=== PATIENT | male | born 1995 | race Caucasian/White ===

== ENCOUNTER 2022-07-14 18:24 | Emergency (ER) | payer SELFPAY ==
[2022-07-14 18:37] VITALS: BP 130/90; PULSE 87; RESP 18; TEMP 36.7; O2SAT 99; BMI 27.1
--- NOTE | 2022-07-14 18:39 | DI.RAD.S_ITS ---
PROCEDURE: XR FOOT LT MIN 3V INDICATIONS: fall down 2 steps, pain top TECHNIQUE: 3 views of the foot were acquired. COMPARISON: None. FINDINGS: Bones: No fractures or dislocations. No suspicious bony lesions. Soft tissues: No tibiotalar joint effusion. Achilles tendon appears normal. IMPRESSION: No visualized acute fracture or dislocation. However, if clinical concern and/or pain persist, short interval imaging followup in 7-10 days is recommended, as occult injury cannot be definitively excluded. Dictated by: Lou Muñoz M.D. on 07/14/2022 at 19:26 Approved by: Lou Muñoz M.D. on 07/14/2022 at 19:26
[2022-07-14 18:46] VITALS: PULSE 78
[2022-07-14] MEDS: ACETAMINOPHEN 325 MG TABLET 975 MG PO (18:49)
[2022-07-14] MEDS: IBUPROFEN 400 MG TABLET 800 MG PO (18:50)
--- NOTE | 2022-07-14 19:26 | ED.LOWEXIN ---
HPI - Extremity Injury (Lower) General Chief Complaint: Extremity Injury, Lower Stated Complaint: fall possible broken foot Time Seen by Provider: 07/14/22 18:59 Source: patient and family Mode of arrival: Wheelchair History of Present Illness HPI Narrative: 26M smoker with no chronic medical history presents with the chief complaint of pain and swelling on his left foot after stepping awkwardly just prior to arrival. He was walking up 2 stairs when he inverted his left foot and now has pain swelling and bruising on the dorsum of his foot. He denies any numbness or tingling of his toes. He has no pain in the ankle, calf or knee. He denies any history of the same. His pain is worse when he ambulates and improves with rest. Related Data Home Medications Medication Instructions Recorded Confirmed omeprazole magnesium 20 mg 20 mg PO DAILY 09/26/18 09/26/18 capsule,delayed release (Acid Final Inspector And Tester (omeprazole)) Previous Rx's Medication Instructions Recorded hydrocodone 5 mg-acetaminophen 325 1 tab PO Q4-6H PRN pain #14 tabs 07/14/22 mg tablet Allergies Allergy/AdvReac Type Severity Reaction Status Date / Time No Known Drug Allergies Allergy Verified 07/14/22 18:39 Review of Systems Review of Systems Narrative: GENERAL: Denies chills, fatigue, malaise, fever, sweats. HEENT: Denies sinus pain, ear pain, sore throat, difficulty swallowing, dizziness. RESPIRATORY: Denies dyspnea, cough, wheezing, hemoptysis, sputum. CARDIOVASCULAR: Denies chest pain, palpitations, orthopnea, edema, GASTROINTESTINAL: Denies nausea, vomiting, abdominal pain, diarrhea, constipation, melena. : Denies dysuria, frequency, incontinence, hematuria, urinary retention. MUSCULOSKELETAL: See HPI SKIN: Denies rash, skin lesions, or other NEUROLOGIC: Denies weakness, headache, numbness, change in speech, confusion, seizures, incoordination. PSYCHIATRIC: No concerning psychosocial issues. 12 point review of systems is negative except for those stated above Patient History Social History Smoking Status: Current some day smoker Smoking Status: Current some day smoker alcohol intake frequency: holidays/special occasions only Substance Use Type: marijuana Exam Narrative Exam Narrative: GEN: AOx3 and in mild distress EYES: Pupils are equal, round, and reactive to light and accommodation. Extraoccular muscles are intact bilaterally. There is no subconjunctival hemorrhage or exudate. CHEST: Lungs are clear to auscultation bilaterally and free of wheezes, rales, or rhonchi. Heart rate is regular rhythm, there are no murmurs, clicks, rubs, or gallops. There is no chest wall tenderness. ABD: Abdomen is soft and nontender. There is no guarding or rebound. Bowel sounds are normal in all 4 quadrants. There is no mass or organomegaly. EXT: Dorsum of left basketballs and footballs reverser to palpation with ecchymosis. No gross deformity. Closed, isolated and N/V intact. No ligamentous instability, no pain medial or lateral malleoli, no pain or talus, no pain with squeeze test or at proximal fibula. No pain or swelling of knee SKIN: Warm, pink, and dry. No erythema or rash Initial Vital Signs Initial Vital Signs: Vital Signs Temperature 98.1 F 07/14/22 18:37 Pulse Rate 87 07/14/22 18:37 Respiratory Rate 18 07/14/22 18:37 Blood Pressure 130/90 07/14/22 18:37 Pulse Oximetry 99 07/14/22 18:37 Oxygen Delivery Method Room Air 07/14/22 18:37 Procedures Orthopedic Splinting/Casting Injury #1: Side: left Lower Extremity Injury Location: foot Lower Extremity Immobilizer: post-op shoe Other Orthopedic Equipment: crutches Post splinting neuro exam: intact Post splinting vascular exam: intact Placed by: Nursing Course Orders Ordered: Discontinued Medications Acetaminophen (Acetaminophen 325 Mg Tablet) 975 mg PO NOW ONE Stop: 07/14/22 18:47 Last Admin: 07/14/22 18:49 Dose: 975 mg Documented By: KEVIN Ibuprofen (Ibuprofen 400 Mg Tablet) 800 mg PO NOW ONE Stop: 07/14/22 18:47 Last Admin: 07/14/22 18:50 Dose: 800 mg Documented By: KEVIN Vital Signs Vital signs: Vital Signs - 8 hr 07/14/22 18:37 07/14/22 18:46 Temperature 98.1 F Pulse Rate 87 Pulse Rate [Left Dorsalis Pedis] 78 Respiratory Rate 18 Blood Pressure 130/90 Pulse Oximetry 99 Oxygen Delivery Method Room Air MDM - Extremity Injury (Lower) MDM Narrative Medical decision making narrative: [26] year old patient presents with left foot pain absent of pain in ankle or knee Multiple etiologies for patient's symptoms considered including, but not limited to: Sprain, fracture, dislocation versus other Prior Charts reviewed in our EMR Primary Historian: patient Imaging reviewed: No fracture or dislocation Patient's symptoms improved over duration of stay with above-stated therapies. Findings and discharge diagnosis discussed with patient/family followed by verbalization of understanding Return precautions discussed with patient/family whom verbalize understanding of diagnosis and plan Discharge Plan Departure Patient Disposition: Home Clinical Impression: Sprain of left foot Instructions: DI for Foot Sprain Activity Restrictions/Additional Instructions: *You have been diagnosed with [left foot sprain. As we discussed the you have pain and swelling your x-ray as interpreted by both myself and Radiology demonstrates no obvious fracture though on occasion a small fracture is very difficult to see on day 1 and may not show up until a week or so down the road. As the result, and as we discussed I will treat today as if there is a fracture with the boot and crutches] *What to do: *Please continue to take your regular medications as directed. [x ] New medication prescriptions sent to your pharmacy: [ [facility]] [ ] New medication written as a paper prescription [x] Tylenol and occasional Motrin for pain (Do not exceed 4000mg total of Tylenol or Acetaminophen daily, there is 325mg per hydrocodone pill) *Please follow up with [Ministerio ] of [facility] in 2-3 days, call for an appointment. Let them know you were seen in the Emergency Department and that we ask that you be seen in follow up. We will electronically transmit a record of today's note if your PCP is in our system *Weight bearing as tolerated *Return to Emergency Department if you should have any new, worsening or concerning symptoms, such as [worsening pain, significant swelling, cold extremities, numbness, tingling, weakness or other bothersome symptoms Splint Care: Keep splint clean and dry. Elevated affected body part to decrease swelling. OK to use ice pack on the affected body part. Use for 15-20 minutes each time, for 5-6x per day. If you develop worsening pain, numbness, tingling, discoloration of the affected body part, loosen the splint by loosening the RENETTA wrap, and either see your doctor for an urgent re-assessment, or return to the Emergency Department. Return to the Emergency Department for any new or worsening symptoms. You have been prescribed a short course of narcotic medications. These are potentially dangerous and addictive medications that should be used carefully. While on these medications you cannot drive or operate heavy machinery. Additionally, you cannot sign legal documents or perform any duties such as this. Many people get constipated on narcotic medications so it would be advisable to discuss stool softeners with the pharmacist when you orange picker your prescription. Please understand that we cannot provide further refills of narcotics or controlled substances through the ED and your pain management will need to be through your Primary Care Provider Prescriptions: New hydrocodone-acetaminophen 5-325 mg tablet 1 tab PO Q4-6H PRN (Reason: pain) Qty: 14 0RF No Action omeprazole magnesium [Acid Final Inspector And Tester (omeprazole)] 20 mg capsule,delayed release(DR/EC) 20 mg PO DAILY Referrals: Ba Mandel MD [Physician] - Ana Berrios ARNP [Primary Care Provider] - Stand Alone Forms: Patient Portal/API
--- NOTE | 2022-07-14 20:11 | PC.NURSE ---
pt declined crutches, states he has a couple pairs at home and is well versed in using them.
== END 2022-07-14 20:13 | disposition home or self-care (01) ==
PROVIDERS: Emergency Provider Emergency Medicine; Family Provider Internal Medicine; PCP Internal Medicine
DX: S93.602A Unspecified sprain of left foot, initial encounter (principal); X50.1XXA Overexertion from prolonged static or awkward postures, initial encounter
CPT/HCPCS: 73630; 99283; 99284

== ENCOUNTER 2022-11-02 10:29 | Emergency (ER) | payer OTHER, SELFPAY ==
[2022-11-02 10:39] VITALS: BP 134/79; PULSE 98; RESP 18; TEMP 37.2; O2SAT 95; BMI 32.5
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
[2022-11-02 10:50] VITALS: PULSE 102; O2SAT 97
[2022-11-02 10:52] VITALS: BP 118/68; PULSE 95; O2SAT 95
[2022-11-02 11:00] VITALS: BP 115/67; PULSE 92; O2SAT 96
--- NOTE | 2022-11-02 11:20 | PC.NURSE ---
Received safe handoff report from ANDRÉS Moore. Pt resting, awaiting x-ray. Denies new symptoms or any needs at this time.
[2022-11-02 11:30] VITALS: BP 121/75; PULSE 92; O2SAT 95
--- NOTE | 2022-11-02 11:45 | PC.NURSE ---
Pt transported to x-ray by wheelchair, where he refused exam. industrial maintenance technician returned pt to room. Pt states he does not have insurance and does not want to incur the expense. Pt informed of hospital financial assistance and provided with paperwork. Pt partially completed form and then stated he wanted to leave. Pt advised he would be leaving AMA and encouraged to stay to receive care. Pt declined to stay and signed AMA paperwork. Pt A&Ox4 and ambulatory on departure.
== END 2022-11-02 11:52 | disposition left against medical advice (07) ==
PROVIDERS: Emergency Provider Emergency Medicine; Family Provider Internal Medicine; PCP Internal Medicine
CPT/HCPCS: 99281

== ENCOUNTER 2022-11-03 14:02 | Emergency (ER) | payer SELFPAY ==
[2022-11-03 14:04] VITALS: BP 127/73; PULSE 99; RESP 20; TEMP 36.7; O2SAT 96; BMI 32.5
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
--- NOTE | 2022-11-03 14:11 | DI.RAD.S_ITS ---
PROCEDURE: XR LUMBAR SPINE 2-3V INDICATIONS: back pain, numbness in toes TECHNIQUE: 3 views of the lumbar spine were acquired. COMPARISON: None. FINDINGS: Bones: 5 [id number] vertebrae are present. There is normal bony alignment. Moderate disc and foraminal narrowing is present at L5-S1. No vertebral body compression fractures. No suspicious bony lesions. Soft tissues: Overlying bowel gas pattern is normal. No suspicious soft tissue calcifications. IMPRESSION: Moderate disc and foraminal narrowing at L5-S1. Dictated by: Lou Muñoz M.D. on 11/03/2022 at 15:00 Approved by: Lou Muñoz M.D. on 11/03/2022 at 15:00
--- NOTE | 2022-11-03 14:11 | DI.RAD.S_ITS ---
PROCEDURE: XR RIBS LT MIN 3V W CXR1V INDICATIONS: left side rib pain TECHNIQUE: 3 views of the left ribs were acquired, along with a single view chest. COMPARISON: None. FINDINGS: Surgical changes and devices: None. Bones and chest wall: No fractures or dislocations. No suspicious bony lesions. Overlying soft tissues appear unremarkable. Lungs and pleura: No pleural effusions or pneumothorax. Lungs appear clear. Mediastinum: Mediastinal contours appear normal. Heart size is normal. IMPRESSION: No visualized acute fracture or dislocation. However, if clinical concern and/or pain persist, short interval imaging followup in 7-10 days is recommended, as occult injury cannot be definitively excluded. Dictated by: Lou Muñoz M.D. on 11/03/2022 at 14:59 Approved by: Lou Muñoz M.D. on 11/03/2022 at 15:00
[2022-11-03 14:12] VITALS: O2SAT 94
[2022-11-03 14:13] VITALS: BP 140/94; PULSE 94; O2SAT 98
[2022-11-03 14:26] LABS: Hematocrit 31.3 % (41-53); Hemoglobin 10.8 g/dL (13.5-17.5); Mean Corpuscular HGB Conc 34.4 % (30-36); Mean Corpuscular Hemoglobin 32.7 PG (26-34); Mean Corpuscular Volume 94.9 fL (80-100); Platelet Count 241 X10^3/uL (150-400); Red Cell Distribution Width 19.9 % (11.6-14.8); White Blood Cell Count 9.3 X10^3/uL (4.5-11.0)
[2022-11-03 14:30] VITALS: BP 123/70; PULSE 93; RESP 26; O2SAT 98
[2022-11-03 14:37] LABS: PTT Partial Thromboplastin Tim 26 SECONDS (26-36)
[2022-11-03 14:39] LABS: Add Manual Diff / Slide Review YES
[2022-11-03 14:40] LABS: Alanine Aminotransferase 28 IU/L (<50); Alkaline Phosphatase 100 U/L (38-126); Aspartate Aminotransferase 24 IU/L (17-59); BUN Creatinine Ratio 23.2 (6-22); Bilirubin Total 0.7 mg/dL (0.2-1.3); Blood Urea Nitrogen 19 mg/dL (9-20); Calcium 8.7 mg/dL (8.4-10.2); Carbon Dioxide 30 mmol/L (22-32); Chloride 103 mmol/L (98-107); Creatine Kinase 56 U/L (55-170); Estimated Glomerular Filt Rate > 60 mL/min (>60); Glucose 113 mg/dL (70-100); HEMOLYSIS < 15 (0-50); Lipase 68 U/L (23-300); Sodium 141 mmol/L (137-145)
[2022-11-03 14:45] LABS: Neutrophils Absolute Manual 5487 /uL (3000-5900); Total Cells Counted 100
[2022-11-03 14:47] LABS: Anisocytosis 1+
[2022-11-03 14:50] LABS: Troponin I < 0.012 ng/mL (0.01-0.034)
[2022-11-03 15:00] VITALS: PULSE 92; RESP 23; O2SAT 96
[2022-11-03 15:30] VITALS: PULSE 92; RESP 30; O2SAT 97
== END 2022-11-03 15:58 | disposition home or self-care (01) ==
PROVIDERS: Emergency Provider Emergency Medicine; Family Provider Internal Medicine; PCP Internal Medicine
DX: R20.2 Paresthesia of skin (principal); R07.9 Chest pain, unspecified
CPT/HCPCS: 36415; 71101; 72100; 80053; 82550; 83690; 83735; 84484; 85007; 85025; 85610; 85730; 99284

== ENCOUNTER 2023-05-22 02:27 | Emergency (ER) | payer SELFPAY ==
[2023-05-22] VITALS (10 sets, daily range): BP systolic 129–143; BP diastolic 70–73; PULSE 95–103; RESP 16–20; TEMP 36.3–36.9; O2SAT 89–98; BMI 29.8
--- NOTE | 2023-05-22 02:43 | DI.RAD.S_ITS ---
PROCEDURE: XR CHEST 2V INDICATIONS: hypoxemia TECHNIQUE: 2 views of the chest were acquired. COMPARISON: None. FINDINGS: Surgical changes and devices: None. Lungs and pleura: Lungs appear clear. No pleural effusions or pneumothorax. Mediastinum: Mediastinal contours are normal. Heart size is normal. Bones and chest wall: No suspicious bony abnormalities. Soft tissues appear unremarkable. IMPRESSION: No acute cardiopulmonary abnormality. This report is concordant with the overnight preliminary interpretation. Dictated by: Alphonso Ruiz M.D. on 05/22/2023 at 7:44 Approved by: Alphonso Ruiz M.D. on 05/22/2023 at 7:45
--- NOTE | 2023-05-22 02:44 | PC.NURSE ---
resp even and unlabored pt has mild end expiratory wheeze in the left upper lobe, and diminished sounds in the bases
[2023-05-22 03:35] LABS: Hematocrit 35.1 % (41-53); Hemoglobin 11.9 g/dL (13.5-17.5); Mean Corpuscular Volume 94.1 fL (80-100); Platelet Count 275 X10^3/uL (150-400); Red Blood Cell Count 3.73 X10^6/uL (4.5-5.9); Red Cell Distribution Width 18.9 % (11.6-14.8); White Blood Cell Count 10.6 X10^3/uL (4.5-11.0)
--- NOTE | 2023-05-22 03:39 | ED_ITS ---
HPI - SOB/Dyspnea <Sukhi Gooden MD - Last Filed: 06/04/23 04:54> General Chief Complaint: Shortness of Breath/Dyspnea Stated Complaint: Shortness of Breath Time Seen by Provider: 05/22/23 02:42 Source: patient Mode of arrival: EMS History of Present Illness HPI Narrative: This is a 27-year-old male who arrives by ambulance. History is provided by EMS, the patient, and girlfriend who accompanies him in the emergency department. Reportedly he has had a cough for several days. Prior to this he was using inhaled nitrous oxide (whip it) although he reports he has not done this in about 5 days. He has had a cough has not had fevers. No nausea vomiting no chest pain. He says it tonight he was in bed and fell out of bed possibly in a panic state. He says he felt short of breath immediately after that. This was not accompanied by chest pain. EMS found him with an oxygen saturation in the upper 80s and reported that he was a bit wheezy although his girlfriend had given him nebulized albuterol. Patient himself says he has no history of lung disease, he vapes and smokes marijuana does not use alcohol. He says he does not have a primary care provider and has a history of abusing nitrous as above. Related Data Home Medications Medication Instructions Recorded Confirmed omeprazole magnesium 20 mg 20 mg PO DAILY 09/26/18 09/26/18 capsule,delayed release (Acid Web Consultant (omeprazole)) Previous Rx's Medication Instructions Recorded hydrocodone 5 mg-acetaminophen 325 1 tab PO Q4-6H PRN pain #14 tabs 07/14/22 mg tablet gabapentin 300 mg capsule 300 mg PO BEDTIME #14 caps 11/03/22 methylprednisolone 4 mg tablets in See Rx Instructions PO .COMPLEX 11/03/22 a dose pack (Medrol (Sahil)) #21 ea Allergies Allergy/AdvReac Type Severity Reaction Status Date / Time No Known Drug Allergies Allergy Verified 11/02/22 10:38 Patient History <Sukhi Gooden MD - Last Filed: 06/04/23 04:54> Social History Smoking Status: Current some day smoker Smoking Status: Current some day smoker alcohol intake frequency: holidays/special occasions only Substance Use Type: marijuana Exam <Sukhi Gooden MD - Last Filed: 06/04/23 04:54> Initial Vital Signs Initial Vital Signs: Vital Signs Temperature 97.3 F L 05/22/23 02:32 Pulse Rate 97 H 05/22/23 02:32 Respiratory Rate 20 05/22/23 02:32 Blood Pressure 129/73 05/22/23 02:32 Pulse Oximetry 89 L 05/22/23 02:32 Oxygen Delivery Method Room Air 05/22/23 02:32 Noted to be 89% on room air. Const General: No acute distress HENMT Head: normocephalic and atraumatic Mouth: moist mucous membranes and No muffled voice Neck Neck: supple and No JVD Resp Effort & Inspection: normal respiratory effort and able to speak in complete sentences Auscultation: no wheezes and other (Mildly coarse breath sounds. No rales.) Cardio Rate: regular rate Rhythm: regular rhythm Heart Sounds: S1 normal, S2 normal and no murmurs GI Palpation: soft and No tender Auscultation: normal bowel sounds Skin General: no rashes or lesions noted, dry skin and warm Neuro General: patient alert, patient awake and patient oriented x3 Speech: speech normal Motor: muscle tone normal throughout Extrem Other: No palpable cords, does have bilateral calf tenderness <Laisha Patterson DO - Last Filed: 05/22/23 11:09> Initial Vital Signs Initial Vital Signs: Vital Signs Temperature 97.3 F L 05/22/23 02:32 Pulse Rate 97 H 05/22/23 02:32 Respiratory Rate 20 05/22/23 02:32 Blood Pressure 129/73 05/22/23 02:32 Pulse Oximetry 89 L 05/22/23 02:32 Oxygen Delivery Method Room Air 05/22/23 02:32 Course <Sukhi Gooden MD - Last Filed: 06/04/23 04:54> Orders Ordered: Discontinued Medications Sodium Chloride (Normal Saline 0.9%) 1,000 mls @ 1,000 mls/hr IV BOLUS ONE Stop: 05/22/23 05:18 Last Infusion: 05/22/23 05:24 Dose: Infused Documented By: Admin: 05/22/23 04:24 Dose: 1,000 mls/hr Documented By: MAIDA Vital Signs Vital signs: Vital Signs - 8 hr 05/22/23 03:30 05/22/23 04:00 05/22/23 04:30 Temperature Pulse Rate 102 H 103 H 99 H Respiratory Rate Blood Pressure Pulse Oximetry 94 94 95 Oxygen Delivery Method Nasal Cannula Nasal Cannula Nasal Cannula Oxygen Flow Rate 4 4 4 05/22/23 05:00 05/22/23 05:30 05/22/23 07:22 Temperature Pulse Rate 98 H 98 H Respiratory Rate 16 Blood Pressure 143/70 H Pulse Oximetry 94 97 Oxygen Delivery Method Nasal Cannula Oxygen Flow Rate 4 05/22/23 07:22 05/22/23 07:30 05/22/23 08:52 Temperature 98.5 F Pulse Rate 98 H 96 H 100 H Respiratory Rate 20 Blood Pressure 132/73 Pulse Oximetry 98 96 95 Oxygen Delivery Method Room Air Room Air Oxygen Flow Rate <Laisha Patterson DO - Last Filed: 05/22/23 11:09> Orders Ordered: Discontinued Medications Sodium Chloride (Normal Saline 0.9%) 1,000 mls @ 1,000 mls/hr IV BOLUS ONE Stop: 05/22/23 05:18 Last Infusion: 05/22/23 05:24 Dose: Infused Documented By: Admin: 05/22/23 04:24 Dose: 1,000 mls/hr Documented By: MAIDA Vital Signs Vital signs: Vital Signs - 8 hr 05/22/23 03:30 05/22/23 04:00 05/22/23 04:30 Temperature Pulse Rate 102 H 103 H 99 H Respiratory Rate Blood Pressure Pulse Oximetry 94 94 95 Oxygen Delivery Method Nasal Cannula Nasal Cannula Nasal Cannula Oxygen Flow Rate 4 4 4 05/22/23 05:00 05/22/23 05:30 05/22/23 07:22 Temperature Pulse Rate 98 H 98 H Respiratory Rate 16 Blood Pressure 143/70 H Pulse Oximetry 94 97 Oxygen Delivery Method Nasal Cannula Oxygen Flow Rate 4 05/22/23 07:22 05/22/23 07:30 05/22/23 08:52 Temperature 98.5 F Pulse Rate 98 H 96 H 100 H Respiratory Rate 20 Blood Pressure 132/73 Pulse Oximetry 98 96 95 Oxygen Delivery Method Room Air Room Air Oxygen Flow Rate MDM - SOB/Dyspnea <Sukhi Gooden MD - Last Filed: 06/04/23 04:54> Lab Data Lab results narrative: CBC with diff is unremarkable except for mild anemia, CMP has mild elevations in AST and ALT probably not clinically significant, troponin is normal D-dimer is elevated 05/22/23 03:15 05/22/23 03:15 Labs: Lab Results 05/22/23 05/22/23 05/22/23 Range/Units 02:43 03:15 03:20 WBC 10.6 (4.5-11.0) X10^3/uL RBC 3.73 L (4.5-5.9) X10^6/uL Hgb 11.9 L (13.5-17.5) g/dL Hct 35.1 L (41-53) % MCV 94.1 (80-100) fL MCH 32.0 (26-34) PG MCHC 34.0 (30-36) % RDW 18.9 H (11.6-14.8) % Plt Count 275 (150-400) X10^3/uL Neut % (Auto) Not Reportable Lymph % (Auto) Not Reportable [place] % (Auto) Not Reportable Eos % (Auto) Not Reportable Baso % (Auto) Not Reportable Lymph # (Auto) Not Reportable [place] # (Auto) Not Reportable Baso # (Auto) Not Reportable Total Counted 100 Seg Neutrophils % 54.0 (38-70) % Band Neutrophils % 4.0 (3-7) % Lymphocytes % (Manual) 28.0 (25-45) % Atypical Lymphs % 1.0 H ( - 0) % Monocytes % (Manual) 6.0 (2-11) % Eosinophils % (Manual) 3.0 (2-4) % Metamyelocytes % 2.0 H (-0) % Myelocytes % 2.0 H (-0) % Neutrophils # (Manual) 6148 H (8832-5018) /uL RBC Morphology See below Anisocytosis 1+ H D-Dimer 836 H (<500) ng/ml VBG pH 7.39 (7.33-7.43) VBG pCO2 45.4 (45-50) mmHg VBG pO2 55 H (35-45) mmHg VBG HCO3 27 (24-28) mmol/L VBG Total CO2 29 (24-29) mmol/L VBG O2 Saturation 88 H (70-75) % VBG Base Excess 2.0 (0-4) mmol/L FiO2 32 Sodium 140 (137-145) mmol/L Potassium 4.2 (3.4-5.1) mmol/L Chloride 105 (98-107) mmol/L Carbon Dioxide 26 (22-32) mmol/L BUN 23 H (9-20) mg/dL Creatinine 0.70 (0.66-1.25) mg/dL Estimated GFR > 60 (>60) mL/min BUN/Creatinine Ratio 32.9 H (6-22) Glucose 132 H (70-100) mg/dL Calcium 8.9 (8.4-10.2) mg/dL Total Bilirubin 0.6 (0.2-1.3) mg/dL AST 41 (17-59) IU/L ALT 34 (<50) IU/L Alkaline Phosphatase 93 (38-126) U/L Troponin I < 0.012 (0.01-0.034) ng/mL NT-Pro-B Natriuret Pep 47 (<125) pg/mL Total Protein 7.6 (6.3-8.2) g/dL Albumin 3.8 (3.5-5.0) g/dL Globulin 3.8 (1.7-4.1) g/dL Albumin/Globulin Ratio 1.0 (1.0-2.8) SARS-CoV-2 (PCR) Negative (Negative) Influenza A (RT-PCR) Flu a negative (NEGATIVE) Influenza B (RT-PCR) Flu b negative (NEGATIVE) RSV (PCR) Negative (Negative) ABG Data ABG results: Fetus blood gas shows pH 7.386 pCO2 45 PO2 of 55 with a bicarbonate of 27.2. This is obtained on 32% FiO2 consistent with a further hypoxia on room air Imaging Data Chest x-ray: My Impression: Independent review of chest x-ray, questionable right lower lobe infiltrate Radiologist's Impression: Night coverage radiology report two-view chest x-ray no acute cardiopulmonary disease ECG Data Interpretation: EKG shows normal sinus rhythm at 96 RI interval 152 QRS duration is 90 milliseconds incomplete right bundle-branch block no acute ST segment changes no previous infarction <Laisha Patterson, - Last Filed: 05/22/23 11:09> Lab Data Labs: Lab Results 05/22/23 05/22/23 05/22/23 Range/Units 02:43 03:15 03:20 WBC 10.6 (4.5-11.0) X10^3/uL RBC 3.73 L (4.5-5.9) X10^6/uL Hgb 11.9 L (13.5-17.5) g/dL Hct 35.1 L (41-53) % MCV 94.1 (80-100) fL MCH 32.0 (26-34) PG MCHC 34.0 (30-36) % RDW 18.9 H (11.6-14.8) % Plt Count 275 (150-400) X10^3/uL Neut % (Auto) Not Reportable Lymph % (Auto) Not Reportable [place] % (Auto) Not Reportable Eos % (Auto) Not Reportable Baso % (Auto) Not Reportable Lymph # (Auto) Not Reportable [place] # (Auto) Not Reportable Baso # (Auto) Not Reportable Total Counted 100 Seg Neutrophils % 54.0 (38-70) % Band Neutrophils % 4.0 (3-7) % Lymphocytes % (Manual) 28.0 (25-45) % Atypical Lymphs % 1.0 H ( - 0) % Monocytes % (Manual) 6.0 (2-11) % Eosinophils % (Manual) 3.0 (2-4) % Metamyelocytes % 2.0 H (-0) % Myelocytes % 2.0 H (-0) % Neutrophils # (Manual) 6148 H (3447-2772) /uL RBC Morphology See below Anisocytosis 1+ H D-Dimer 836 H (<500) ng/ml VBG pH 7.39 (7.33-7.43) VBG pCO2 45.4 (45-50) mmHg VBG pO2 55 H (35-45) mmHg VBG HCO3 27 (24-28) mmol/L VBG Total CO2 29 (24-29) mmol/L VBG O2 Saturation 88 H (70-75) % VBG Base Excess 2.0 (0-4) mmol/L FiO2 32 Sodium 140 (137-145) mmol/L Potassium 4.2 (3.4-5.1) mmol/L Chloride 105 (98-107) mmol/L Carbon Dioxide 26 (22-32) mmol/L BUN 23 H (9-20) mg/dL Creatinine 0.70 (0.66-1.25) mg/dL Estimated GFR > 60 (>60) mL/min BUN/Creatinine Ratio 32.9 H (6-22) Glucose 132 H (70-100) mg/dL Calcium 8.9 (8.4-10.2) mg/dL Total Bilirubin 0.6 (0.2-1.3) mg/dL AST 41 (17-59) IU/L ALT 34 (<50) IU/L Alkaline Phosphatase 93 (38-126) U/L Troponin I < 0.012 (0.01-0.034) ng/mL NT-Pro-B Natriuret Pep 47 (<125) pg/mL Total Protein 7.6 (6.3-8.2) g/dL Albumin 3.8 (3.5-5.0) g/dL Globulin 3.8 (1.7-4.1) g/dL Albumin/Globulin Ratio 1.0 (1.0-2.8) SARS-CoV-2 (PCR) Negative (Negative) Influenza A (RT-PCR) Flu a negative (NEGATIVE) Influenza B (RT-PCR) Flu b negative (NEGATIVE) RSV (PCR) Negative (Negative) Imaging Data CT scan - chest: Radiologist's Impression: Preliminary report: Suboptimal timing of the contrast bolus to evaluate for pulmonary embolus. No central pulmonary embolism aortic dissection or aneurysm. Multifocal bilateral pulmonary infiltrates. Recommend short-term follow-up CT in 3 months after appropriate treatment and ensure complete resolution. MDM Narrative Medical decision making narrative: DR. Patterson: Patient signed out to me by Dr. Gooden I have seen evaluated patient myself. He reports that he was in [place] for the last 3 days he has been walking around last night he woke up suddenly extremely short of breath and fell out of bed. He was noted to be hypoxic on room air 89%. He required 4 L of oxygen. He admits that he was doing lipids inhaling some sort of nitric oxide he was doing it so frequently his B12 level decreased. He reports that was 6 months ago. He denies any fever chills or cough. He has not having anymore chest pain. He had an albuterol treatment at home by his girlfriend. He is overall feeling much better no longer hypoxic Blood work has been reviewed: No leukocytosis or anemia, no electrolyte abnormalities or GM troponin is negative D-dimer 836 BNP Imaging reviewed: Chest x-ray no acute cardiopulmonary process, CT did not show any PE but does show some bilateral pulmonary infiltrates Patient not having any symptoms of pneumonia. Overall feeling better. He ambulated without any difficulty. Discharge Plan Departure Patient Disposition: Home Clinical Impression: Atypical chest pain Instructions: DI for Atypical Chest Pain Activity Restrictions/Additional Instructions: *You have been diagnosed with atypical chest pain *What to do: At this time your blood work and CT scans are overall reassuring. Unclear what caused your shortness of breath. However you do not have infection fluid or blood clot *Continue to take medications as directed *Follow up with your primary care provider in 2-3 days or call [phone] *Return to ER if you should have increasing chest pain shortness of breath or any new, worsening or concerning symptoms Prescriptions: No Action omeprazole magnesium [Acid Web Consultant (omeprazole)] 20 mg capsule,delayed release(DR/EC) 20 mg PO DAILY hydrocodone-acetaminophen 5-325 mg tablet 1 tab PO Q4-6H PRN (Reason: pain) Qty: 14 0RF gabapentin 300 mg capsule 300 mg PO BEDTIME Qty: 14 0RF methylprednisolone [Medrol (Sahil)] 4 mg tablets,dose pack See Rx Instructions .ROUTE .COMPLEX Qty: 21 0RF Rx Instructions: orally per package directions Referrals: Ana Berrios ARNP [Primary Care Provider] - Stand Alone Forms: Patient Portal/API
[2023-05-22 03:47] LABS: Add Manual Diff / Slide Review YES
[2023-05-22 03:48] LABS: D Dimer 836 ng/ml (<500)
[2023-05-22 03:56] LABS: Alanine Aminotransferase 34 IU/L (<50); Albumin 3.8 g/dL (3.5-5.0); BUN Creatinine Ratio 32.9 (6-22); Bilirubin Total 0.6 mg/dL (0.2-1.3); Blood Urea Nitrogen 23 mg/dL (9-20); Calcium 8.9 mg/dL (8.4-10.2); Carbon Dioxide 26 mmol/L (22-32); Chloride 105 mmol/L (98-107); Estimated Glomerular Filt Rate > 60 mL/min (>60); Globulin 3.8 g/dL (1.7-4.1); Glucose 132 mg/dL (70-100); Sodium 140 mmol/L (137-145); Total Protein 7.6 g/dL (6.3-8.2)
[2023-05-22 03:57] LABS: Neutrophils Absolute Manual 6148 /uL (3000-5900); Total Cells Counted 100
[2023-05-22 03:59] LABS: Anisocytosis 1+
[2023-05-22 04:00] LABS: HEMOLYSIS 57 (0-50); Potassium 4.2 mmol/L (3.4-5.1)
[2023-05-22 04:01] LABS: Alkaline Phosphatase 93 U/L (38-126); Aspartate Aminotransferase 41 IU/L (17-59)
[2023-05-22 04:07] LABS: Troponin I < 0.012 ng/mL (0.01-0.034)
[2023-05-22] MEDS: SODIUM CHLORIDE 0.9% 1,000 ML 1000 ML IV (04:24)
[2023-05-22 04:27] LABS: Influenza A - CEPHEID Flu A NEGATIVE (NEGATIVE); Influenza B - CEPHEID Flu B NEGATIVE (NEGATIVE); Respiratory Syncytial Virus Negative (Negative)
[2023-05-22 04:31] LABS: COVID-19 CEPHEID 4-PLEX PCR Negative (Negative)
[2023-05-22 06:44] LABS: Fractionated Inspired Oxygen 32; HCO3 VBG 27 mmol/L (24-28); Oxygen Saturation VBG 88 % (70-75); PCO2 VBG 45.4 mmHg (45-50); PO2 VBG 55 mmHg (35-45); Total CO2 VBG 29 mmol/L (24-29); pH VBG 7.39 (7.33-7.43)
--- NOTE | 2023-05-22 07:29 | PC.NURSE ---
Pt retruned from [facility] via [facility] transport. Pt a&ox4 and answers all questions appropriately. Pt c/o leg pain that he rates as a 6\10 and attributes to walking around in [place] for a few days. Pt denies SOB or difficulty breathing. Course breath sounds in upper left lung field upon auscultation. Pt on 4L NC 96% with normal respiratory effort. Pt able to speak in full sentences. Skin cool and dry.
[2023-05-22 08:01] LABS: NT-proBNP (BNP-Adult 18+) 47 pg/mL (<125)
--- NOTE | 2023-05-22 08:39 | PC.NURSE ---
Pt o2 sat 95% during ambulation trial. Pt Denies SOB, dizzniess. No increased work of breathing. Pt c/o of leg pain and swelling. 1+ bilateral lower extremity edema noted.
== END 2023-05-22 08:54 | disposition home or self-care (01) ==
PROVIDERS: Emergency Medicine; Emergency Provider Emergency Medicine; Family Provider Internal Medicine; PCP Internal Medicine
DX: R07.89 Other chest pain (principal); R09.02 Hypoxemia; Z20.822 Contact with and (suspected) exposure to COVID-19
CPT/HCPCS: 0241U; 36415; 71046; 80053; 82805; 83880; 84484; 85007; 85025; 85379; 93005; 96360; 99284

== ENCOUNTER 2024-02-21 11:01 | Emergency (ER) | payer OTHER, MEDICAID, SELFPAY ==
[2024-02-21 11:16] VITALS: BP 127/68; PULSE 87; RESP 14; TEMP 36.1; O2SAT 95; BMI 32.5
--- NOTE | 2024-02-21 11:18 | DI.RAD.S_ITS ---
PROCEDURE: XR ANKLE RT MIN 3V INDICATIONS: ankle injury TECHNIQUE: 3 views of the ankle were acquired. COMPARISON: None. FINDINGS: Bones: No dislocations. Ankle mortise is normally aligned. No suspicious bony lesions. There is a diagonal fracture at the base of the lateral malleolus with overlying soft tissue swelling Soft tissues: No tibiotalar joint effusion. Achilles tendon appears normal. IMPRESSION: High positioning of diagonal fracture at and above the level of the ankle mortise joint at the lateral malleolus. Dictated by: Byron Azevedo M.D. on 02/21/2024 at 12:12 Approved by: Byron Azevedo M.D. on 02/21/2024 at 12:14
--- NOTE | 2024-02-21 12:01 | ED_ITS ---
HPI - Extremity Injury (Lower) <Aline Shepard PA-C - Last Filed: 02/21/24 12:34> General Chief Complaint: Extremity Injury, Lower Stated Complaint: fall/right ankle injury yesterday Time Seen by Provider: 02/21/24 11:53 Source: patient Mode of arrival: Wheelchair History of Present Illness HPI Narrative: Patient is a very pleasant 28-year-old male presents to the emergency room department today complaining of right lateral ankle pain. Yesterday around 10:30 a.m., the patient unfortunately slipped in some dog urine, he twisted his right ankle, heard a loud pop, unable to weightbear on the right lower ex tremity. He has been elevating it, icing it, using heat, over the counter ibuprofen and Tylenol for discomfort and pain. However this morning he attempted to get up and go to the bathroom and he was unable to weightbear. Brought into the emergency department by his brother. Brought back to fast track by wheelchair, ice is currently being applied. No other further complaints. Related Data Home Medications Medication Instructions Recorded Confirmed omeprazole magnesium 20 mg 20 mg PO DAILY 09/26/18 09/26/18 capsule,delayed release (Acid Catalog Specialist (omeprazole)) Previous Rx's Medication Instructions Recorded hydrocodone 5 mg-acetaminophen 325 1 tab PO Q4-6H PRN pain #14 tabs 07/14/22 mg tablet gabapentin 300 mg capsule 300 mg PO BEDTIME #14 caps 11/03/22 methylprednisolone 4 mg tablets in See Rx Instructions PO .COMPLEX 11/03/22 a dose pack (Medrol (Sahil)) #21 ea oxycodone-acetaminophen 5 mg-325 1 tab PO Q4-6H PRN pain #14 tabs 02/21/24 mg tablet (Percocet) Allergies Allergy/AdvReac Type Severity Reaction Status Date / Time No Known Drug Allergies Allergy Verified 02/21/24 11:16 Review of Systems <Aline Shepard PA-C - Last Filed: 02/21/24 12:34> Review of Systems Narrative: Negative except as above Musculoskeletal Comments: Right lateral ankle pain. Patient History <Aline Shepard PA-C - Last Filed: 02/21/24 12:34> Social History Smoking Status: Current some day smoker Smoking Status: Current some day smoker tobacco type: vaping alcohol intake frequency: holidays/special occasions only Substance Use Type: marijuana Exam <Aline Shepard PA-C - Last Filed: 02/21/24 12:34> Initial Vital Signs Initial Vital Signs: Vital Signs Temperature 97.0 F L 02/21/24 11:16 Pulse Rate 87 02/21/24 11:16 Respiratory Rate 14 02/21/24 11:16 Blood Pressure 127/68 02/21/24 11:16 Pulse Oximetry 95 02/21/24 11:16 Oxygen Delivery Method Room Air 02/21/24 11:16 Reviewed Const General: cooperative, healthy appearing, comfortable, well developed, well groomed, No acute distress, in distress and No anxious Orientation: Orientation Eyes General: Yes appearance normal, both eyes and all related structures Pupils: PERRL EOM: EOM intact bilaterally Skin Other: Warm pink and dry, some lateral soft tissue swelling, mild ecchymosis noted to the right distal ankle. Neuro Other: Cranial nerves are grossly intact, cognition, speech are intact. Gait not tested due to discomfort and pain and limited range of motion to the right lower extremity and unable to weightbear. Extrem Other: Range of motion, strength, pulses, cap refill preserved in the upper extremities and left lower extremity. Patient has some referred right hip pain, femur is normal, patella is normal, upper tibia and fibula is normal, patient has ice applied to the right lower extremity. Soft tissue swelling is noted mild ecchymosis. Patient has pain with movement of the right lower extremity. Cap refill is preserved. Pulses are present. X-ray shows a nondisplaced high distal fibula fracture. Psych Other: Appearance, mental status, speech, movement, mood, affect, attitude, thought process, thought content and judgment is all intact. <Pina Vyas MD - Last Filed: 02/21/24 18:54> Initial Vital Signs Initial Vital Signs: Vital Signs Temperature 97.0 F L 02/21/24 11:16 Pulse Rate 87 02/21/24 11:16 Respiratory Rate 14 02/21/24 11:16 Blood Pressure 127/68 02/21/24 11:16 Pulse Oximetry 95 02/21/24 11:16 Oxygen Delivery Method Room Air 02/21/24 11:16 Procedures <Aline Shepard PA-C - Last Filed: 02/21/24 12:34> Orthopedic Splinting/Casting Injury #1: Time of procedure: 12:32 Side: right Lower Extremity Immobilizer: boot orthosis Placed by: Nursing Scores <Aline Shepard PA-C - Last Filed: 02/21/24 12:34> [facility] Citation: 15 Course <Aline Shepard PA-C - Last Filed: 02/21/24 12:34> Orders Ordered: ED Orders 02/21/24 11:18 XR ankle RT min 3V Stat Discontinued Medications Ketorolac Tromethamine (Ketorolac 30 Mg/Ml Vial) 30 mg IM NOW ONE Stop: 02/21/24 12:02 Last Admin: 02/21/24 12:12 Dose: 30 mg Documented By: CHANDLER Oxycodone HCl (Oxycodone Ir 5 Mg Tablet) 5 mg PO NOW ONE Stop: 02/21/24 12:02 Last Admin: 02/21/24 12:12 Dose: 5 mg Documented By: CHANDLER Vital Signs Vital signs: Vital Signs - 8 hr 02/21/24 11:16 02/21/24 12:48 Temperature 97.0 F L Pulse Rate 87 72 Respiratory Rate 14 16 Blood Pressure 127/68 109/67 Pulse Oximetry 95 95 Oxygen Delivery Method Room Air Room Air Reviewed <Pina Vyas MD - Last Filed: 02/21/24 18:54> Orders Ordered: ED Orders 02/21/24 11:18 XR ankle RT min 3V Stat Discontinued Medications Ketorolac Tromethamine (Ketorolac 30 Mg/Ml Vial) 30 mg IM NOW ONE Stop: 02/21/24 12:02 Last Admin: 02/21/24 12:12 Dose: 30 mg Documented By: CHANDLER Oxycodone HCl (Oxycodone Ir 5 Mg Tablet) 5 mg PO NOW ONE Stop: 02/21/24 12:02 Last Admin: 02/21/24 12:12 Dose: 5 mg Documented By: CHANDLER Vital Signs Vital signs: Vital Signs - 8 hr 02/21/24 11:16 02/21/24 12:48 Temperature 97.0 F L Pulse Rate 87 72 Respiratory Rate 14 16 Blood Pressure 127/68 109/67 Pulse Oximetry 95 95 Oxygen Delivery Method Room Air Room Air MDM - Extremity Injury (Lower) <Aline Shepard PA-C - Last Filed: 02/21/24 12:34> Imaging Data Extremity x-ray #1: Radiologist's Impression: [address] [address] XRay Report Signed Patient: Iglesia Gibbons MR#: [id number] : 1995 Acct:[id number] Age/Sex: 28 / M Date of Service: 02/21/24 Loc: ED Accession Number: [id number] Procedure: XR ankle RT min 3V Ordering Provider: Pina Vyas MD PROCEDURE: XR ANKLE RT MIN 3V INDICATIONS: ankle injury TECHNIQUE: 3 views of the ankle were acquired. COMPARISON: None. FINDINGS: Bones: No dislocations. Ankle mortise is normally aligned. No suspicious bony lesions. There is a diagonal fracture at the base of the lateral malleolus with overlying soft tissue swelling Soft tissues: No tibiotalar joint effusion. Achilles tendon appears normal. IMPRESSION: High positioning of diagonal fracture at and above the level of the ankle mortise joint at the lateral malleolus. Dictated by: Byron Azevedo M.D. on 02/21/2024 at 12:12 Approved by: Byron Azevedo M.D. on 02/21/2024 at 12:14 [facility] Narrative Medical decision making narrative: Pleasant 28-year-old male presents to the emergency department with right lateral ankle pain and discomfort after he sustained a fall last night. Unable to weightbear. Ice is applied prior to him being seen here in the emergency department. Took Tylenol ibuprofen prior to being seen at about 830 this morning. X-ray shows a high right nondisplaced fibula fracture. Toradol IM 30 mg 5 mg p.o. oxycodone Patient placed in a boot Patient has crutches at home Ortho referral Work note Patient discharged with nondisplaced distal/high fibula fracture Discharge Plan Departure Patient Disposition: Home Clinical Impression: Fracture of distal end of right fibula Qualifiers: Encounter type: initial encounter Fracture type: closed Fracture morphology: other fracture Qualified Code(s): S82.831A - Other fracture of upper and lower end of right fibula, initial encounter for closed fracture Activity Restrictions/Additional Instructions: Boot for comfort Nonweightbearing with crutches Rest, ice, elevation, Prescription has been sent to your pharmacy No drinking, driving, operating power equipment or power tools or using any recreational drug use with the medications. Prescriptions: New oxycodone-acetaminophen [Percocet] 5-325 mg tablet 1 tab PO Q4-6H PRN (Reason: pain) Qty: 14 0RF No Action omeprazole magnesium [Acid Catalog Specialist (omeprazole)] 20 mg capsule,delayed release(DR/EC) 20 mg PO DAILY hydrocodone-acetaminophen 5-325 mg tablet 1 tab PO Q4-6H PRN (Reason: pain) Qty: 14 0RF gabapentin 300 mg capsule 300 mg PO BEDTIME Qty: 14 0RF methylprednisolone [Medrol (Sahil)] 4 mg tablets,dose pack See Rx Instructions .ROUTE .COMPLEX Qty: 21 0RF Rx Instructions: orally per package directions Referrals: Ana Berrios ARNP [Primary Care Provider] - Sylvester Fagan MD [Physician] - (You are being referred to the provider (or provider group) listed but no appointment has been made. Please call the provider?s office within the next day or two at the phone number above to make an appointment. Nondisplaced right distal fibula fracture) Stand Alone Forms: Patient Portal/API, Work Release Note ED Sign-out <Pina Vyas MD - Last Filed: 02/21/24 18:54> Cosign ED Attending Luly Attestation: I was immediately available in the department for consultation throughout this patient's visit. Pina Vyas MD
[2024-02-21] MEDS: KETOROLAC 30 MG/ML VIAL IM (12:12)
[2024-02-21] MEDS: OXYCODONE IR 5 MG TABLET PO (12:12)
[2024-02-21 12:48] VITALS: BP 109/67; PULSE 72; RESP 16; O2SAT 95
== END 2024-02-21 12:50 | disposition home or self-care (01) ==
PROVIDERS: Emergency Provider Physician Assistant; Family Provider Internal Medicine; PCP Internal Medicine
DX: S82.831A Other fracture of upper and lower end of right fibula, initial encounter for closed fracture (principal); W01.0XXA Fall on same level from slipping, tripping and stumbling without subsequent striking against object, initial encounter
CPT/HCPCS: 29515; 29580; 73610; 96372; 99283; J1885